=== PATIENT | female | born 1965 | race Two or more races ===

== ENCOUNTER 2023-01-10 15:57 | Inpatient (IN) | payer BC ==
[2023-01-10] MEDS ORDERED: Albuterol/Ipratropium 3.0-0.5 MG/3 ML Neb Soln NEB ONE ×3 (16:34→17:58)
[2023-01-10] MEDS ORDERED: methylPREDNISolone Sodium Succinate 125 MG/2 ML SDV IVPUSH ONE (16:45)
[2023-01-10 17:59] LABS: BASOPHILS ABSOLUTE AUTO 0.04 K/mm3 (0.01-0.08); BASOPHILS PERCENT AUTO 0.2 % (0.1-1.2); EOSINOPHILS ABSOLUTE AUTO 0.43 K/mm3 (0.04-0.36); EOSINOPHILS PERCENT AUTO 2.3 (0.7-5.8); HEMATOCRIT 42.6 % (34.1-44.9); HEMOGLOBIN 13.9 gm/dl (11.2-15.7); IMMATURE GRAN ABSOLUTE AUTO 0.04 K/mm3 (0.00-0.10); IMMATURE GRAN PERCENT AUTO 0.2 % (<=1.0); LYMPHOCYTES ABSOLUTE AUTO 4.24 K/mm3 (1.18-3.74); LYMPHOCYTES PERCENT AUTO 22.8 % (19.3-51.7); MEAN CORPUSCULAR HEMOGLOBIN 30.2 pg (25.6-32.2); MEAN CORPUSCULAR HGB CONC 32.6 g/dl (32.2-35.5); MEAN CORPUSCULAR VOLUME 92.4 fl (79.4-94.8); MEAN PLATELET VOLUME 8.8 fl (9.4-12.3); MONOCYTES ABSOLUTE AUTO 0.81 K/mm3 (0.24-0.36); MONOCYTES PERCENT AUTO 4.4 % (4.7-12.5); NEUTROPHILS ABSOLUTE AUTO 13.01 K/mm3 (1.56-6.13); NEUTROPHILS PERCENT AUTO 70.1 % (34.0-71.1); PLATELET COUNT,PLT 416 K/mm3 (182-369); RED BLOOD CELL COUNT 4.61 M/mm3 (3.98-5.22); WHITE BLOOD CELL COUNT,WBC 18.57 K/mm3 (3.98-10.04)
[2023-01-10 18:46] LABS: TROPONIN I HIGH SENSITIVITY 5 pg/mL (<=51)
[2023-01-10 19:19] LABS: A/G RATIO 0.9 (1-2); ALANINE AMINOTRANSFERASE,ALT 47 U/L (14-59); ALBUMIN 4.1 g/dl (3.4-5.0); ALKALINE PHOSPHATASE 109 U/L (46-116); ASPARTATE AMNIOTRANSFERASE,AST 32 U/L (15-37); BILIRUBIN TOTAL 0.5 mg/dL (0.2-1.0); BLOOD UREA NITROGEN,BUN 11 mg/dL (7-18); BUN/CREATININE RATIO 13.8 (14-18); CALCIUM 9.3 mg/dL (8.5-10.1); CARBON DIOXIDE,CO2 23 mEq/L (21-32); CHLORIDE,CL 103 mEq/L (98-107); CREATININE 0.8 mg/dL (0.55-1.02); ESTIMATED GFR 86 mL/min (>60); GLUCOSE RANDOM 167 mg/dL (70-99); PROTEIN TOTAL,TP 8.5 g/dl (6.4-8.2); SODIUM,NA 139 mEq/L (136-145)
[2023-01-10] MEDS ORDERED: Sodium Chloride 0.9% 100 ML IV SCH (20:15)
[2023-01-10] MEDS ORDERED: Iopamidol 755 Mg/ML 100 ML Bottle IVPUSH ONE (20:15)
[2023-01-10] MEDS ORDERED: Lactated Ringers 1,000 ML IV ONE (20:49)
[2023-01-11] MEDS ORDERED: diphenhydrAMINE 50 MG/ML SDV IVPUSH PRN (01:08)
[2023-01-11] MEDS ORDERED: Lactated Ringers 1,000 ML IV SCH (01:15)
[2023-01-11] MEDS ORDERED: guaiFENesin 600 MG Tab.ER PO ONE (01:30)
[2023-01-11] MEDS: Albuterol/Ipratropium 3.0-0.5 MG/3 ML Neb Soln NEB SCH ×6 (01:36→21:52)
[2023-01-11] MEDS ORDERED: Docusate Sodium 100 MG Cap PO PRN (08:12)
[2023-01-11] MEDS ORDERED: Albuterol 0.083% 2.5 MG/3 ML Neb Soln NEB PRN (08:12)
[2023-01-11] MEDS ORDERED: Acetaminophen 325 MG Tab PO PRN (08:12)
[2023-01-11] MEDS ORDERED: Ondansetron 4 MG/2 ML SDV IV PRN (08:12)
[2023-01-11] MEDS: Enoxaparin 40 MG/0.4 ML Syringe SUBCUT SCH (08:22)
[2023-01-11] MEDS ORDERED: predniSONE 20 MG Tab PO SCH (09:00)
[2023-01-11] MEDS ORDERED: Potassium Chloride 20 MEQ Tab.ER PO ONE (12:30)
[2023-01-11] MEDS: guaiFENesin 600 MG Tab.ER PO SCH (20:04)
[2023-01-12] MEDS: Albuterol/Ipratropium 3.0-0.5 MG/3 ML Neb Soln NEB SCH ×3 (01:55→09:10)
[2023-01-12] MEDS ORDERED: predniSONE 20 MG Tab PO SCH (07:00)
[2023-01-12] MEDS: Enoxaparin 40 MG/0.4 ML Syringe SUBCUT SCH (08:35)
[2023-01-12] MEDS: guaiFENesin 600 MG Tab.ER PO SCH (08:36)
[2023-01-12] MEDS ORDERED: TAMOXIFEN 10 MG PO SCH (09:00)
[2023-01-12] MEDS ORDERED: Potassium Chloride 20 MEQ Tab.ER PO ONE (09:30)
== END 2023-01-12 10:18 | disposition home or self-care (01) | DRG 133 ==
LOC: JD.ED 15:57 → JD.MS 23:24
PROVIDERS: ADMIT Internal Medicine; ATTEND Internal Medicine
DX: J96.01 Acute respiratory failure with hypoxia (principal); J45.41 Moderate persistent asthma with (acute) exacerbation; R91.8 Other nonspecific abnormal finding of lung field; E87.6 Hypokalemia; R79.89 Other specified abnormal findings of blood chemistry; T17.998A Other foreign object in respiratory tract, part unspecified causing other injury, initial encounter; Z88.1 Allergy status to other antibiotic agents; Z91.018 Allergy to other foods; Z86.718 Personal history of other venous thrombosis and embolism; Z86.16 Personal history of COVID-19; Z90.49 Acquired absence of other specified parts of digestive tract; Z90.710 Acquired absence of both cervix and uterus; Z79.899 Other long term (current) drug therapy; Z86.711 Personal history of pulmonary embolism; Z85.3 Personal history of malignant neoplasm of breast; Z87.01 Personal history of pneumonia (recurrent); Z87.19 Personal history of other diseases of the digestive system
CPT/HCPCS: 36415; 71045; 71045-26; 71275; 71275-26; 80053; 84484; 85025; 85379; 87040; 94640; 94667; 94668; 94761; 96374; 99285-25; A9270-GY; J1650; J2930; J3490; J7120; J7512; J7620-GY; Q9967